=== PATIENT | female | born 1965 | race Two or more races ===

== ENCOUNTER 2017-08-24 13:26 | Inpatient (IN) | payer OTHER ==
--- NOTE | 2017-08-24 13:52 | PDOC ---
Attending Attestation - Resident Resident Name: Palmer Newell - ED Attending Attestation I have performed the following: I have examined & evaluated the patient, The case was reviewed & discussed with the resident, I agree w/resident's findings & plan, Exceptions are as noted - HPI HPI: 08/24/17 13:51 NVD and ABDOMINAL PAIN - Physicial Exam PE: 08/24/17 13:51 VSS, NON-TENDER ABDOMEN - Medical Decision Making 08/24/17 13:[address] Newell Assessment and Plan
--- NOTE | 2017-08-24 14:06 | PDOC ---
History of Present Illness - History of Present Illness Initial Comments: 08/24/17 14:40 The patient is a 52 year old female, with a significant past medical history of right kidney transplant, htn, diabetes, who presents to the emergency department with nausea, vomiting, and diarrhea for 2 days. The patient states her vomit is nonbilious/nonbloody. She reports her diarrhea as watery, but denies blood. She reports her son has similar symptoms and was treated for food poisoning. The patient's mother and her son both reportedly ate "bad tasting" potato salad and macaroni. The patient also report experiencing alternating hot and cold, as well as, feeling "sweaty". She denies chest pain, shortness of breath, headache and dizziness. She denies constipation. She denies dysuria, frequency, urgency and hematuria. Surgical Hx: none reported <Argelia Paris - Last Filed: 08/24/17 18:47> <Ayaz Alberto - Last Filed: 08/24/17 19:24> - General Chief Complaint: Pain Stated Complaint: ABD PAIN Time Seen by Provider: 08/24/17 13:43 Past History <Argelia Paris - Last Filed: 08/24/17 18:47> - Past Medical History Asthma: Yes Cardiac Disorders: Yes (Murmur) COPD: No Dialysis: (In the past, had Kidney transp.Rt arm Fistula) Disorders: Yes HTN: Yes Thyroid Disease: No - Suicide/Smoking/Psychosocial Hx Smoking Status: No Smoking History: Never smoked Have you smoked in the past 12 months: No Number of Cigarettes Smoked Daily: 0 Hx Alcohol Use: No Drug/Substance Use Hx: No Substance Use Type: None Hx Substance Use Treatment: No <Ayaz Alberto - Last Filed: 08/24/17 19:24> - Past Medical History Allergies/Adverse Reactions: Allergies Allergy/AdvReac Type Severity Reaction Status Date / Time shellfish derived Allergy Intermediate Swelling Verified 12/25/15 07:55 atorvastatin calcium Allergy Verified 12/25/15 07:55 [From Lipitor] ceftriaxone sodium Allergy Verified 08/24/17 13:32 [From Rocephin] ciprofloxacin [From Cipro] Allergy Verified 08/24/17 13:32 ciprofloxacin HCl Allergy Verified 08/24/17 13:32 [From Cipro] honey Allergy Verified 08/24/17 13:32 levofloxacin [From Levaquin] Allergy Verified 08/24/17 13:32 chas Allergy Verified 08/24/17 13:32 naproxen sodium [From Aleve] Allergy Verified 08/24/17 13:32 pineapple Allergy Verified 08/24/17 13:32 povidone-iodine Allergy Verified 08/24/17 13:32 [From Betadine] soap [From Betadine] Allergy Verified 08/24/17 13:32 strawberry Allergy Verified 12/25/15 07:57 vancomycin Allergy Verified 12/25/15 07:55 russafin Allergy Uncoded 12/25/15 07:56 Home Medications: Ambulatory Orders Clonidine HCl [Catapres -] 0.3 mg PO HS 05/14/13 Furosemide [Lasix -] 40 mg PO DAILY 05/14/13 Labetalol HCl [Normodyne -] 300 mg PO TID 05/14/13 Mycophenolate Mofetil [Cellcept] 500 mg PO DAILY 05/14/13 Prednisone [Deltasone -] 5 mg PO DAILY 05/14/13 Tacrolimus [Prograf] 3 mg PO DAILY 05/14/13 Clonidine HCl 0.1 mg PO TID 12/25/15 Glipizide [Glipizide ER] 5 mg PO DAILY 12/25/15 Review of Systems - Review of Systems Able to Perform ROS?: Yes Comments:: 08/24/17 15:10 GENERAL/CONSTITUTIONAL: (+) chills and diaphoresis. No fever. No weakness. HEAD, EYES, EARS, NOSE AND THROAT: No change in vision. No ear pain or discharge. No sore throat. CARDIOVASCULAR: No chest pain or shortness of breath. RESPIRATORY: No cough, wheezing, or hemoptysis. GASTROINTESTINAL: (+) nausea, vomiting, diarrhea. No constipation. GENITOURINARY: No dysuria, frequency, or change in urination. MUSCULOSKELETAL: No joint or muscle swelling or pain. No neck or back pain. SKIN: No rash NEUROLOGIC: No headache, vertigo, loss of consciousness, or change in strength/ sensation. ENDOCRINE: No increased thirst. No abnormal weight change. HEMATOLOGIC/LYMPHATIC: No anemia, easy bleeding, or history of blood clots. ALLERGIC/IMMUNOLOGIC: No hives or skin allergy. <Argelia Paris - Last Filed: 08/24/17 18:47> *Physical Exam - Vital Signs Last Vital Signs Temp Pulse Resp BP Pulse Ox 98 F 90 18 120/78 99 08/24/17 13:28 08/24/17 13:28 08/24/17 13:28 08/24/17 13:28 08/24/17 13:28 - Physical Exam Comments: 08/24/17 15:10 GENERAL: Awake, alert, and fully oriented, in no acute distress HEAD: No signs of trauma EYES: PERRLA, EOMI, sclera anicteric, conjunctiva clear ENT: Auricles normal inspection, hearing grossly normal, nares patent, oropharynx clear without exudates. Moist mucosa NECK: Normal ROM, supple, no lymphadenopathy, JVD, or masses LUNGS: Breath sounds equal, clear to auscultation bilaterally. No wheezes, and no crackles HEART: Regular rate and rhythm, normal S1 and S2, no murmurs, rubs or gallops ABDOMEN: Soft, nontender, normoactive bowel sounds. No guarding, no rebound. No masses EXTREMITIES: Normal range of motion, no edema. No clubbing or cyanosis. No cords, erythema, or tenderness NEUROLOGICAL: Cranial nerves II through XII grossly intact. Normal speech, normal gait SKIN: Warm, Dry, normal turgor, no rashes or lesions noted. <Argelia Paris - Last Filed: 08/24/17 18:47> - Vital Signs Last Vital Signs Temp Pulse Resp BP Pulse Ox 98 F 90 18 120/78 99 08/24/17 13:28 08/24/17 13:28 08/24/17 13:28 08/24/17 13:28 08/24/17 13:28 <Ayaz Alberto - Last Filed: 08/24/17 19:24> ED Treatment Course - LABORATORY CBC & Chemistry Diagram: 08/24/17 14:35 08/24/17 14:35 - Medications Given in the ED: ED Medications Discontinued Medications Generic Name Dose Route Start Last Admin Trade Name Khanhq PRN Reason Stop Dose Admin Ondansetron HCl 8 mg 08/24/17 14:24 08/24/17 14:35 Zofran Injection IVPB 08/24/17 14:25 8 mg ONCE ONE Administration <Argelia Paris - Last Filed: 08/24/17 18:47> - LABORATORY CBC & Chemistry Diagram: 08/24/17 14:35 08/24/17 14:35 <Ayaz Alberto - Last Filed: 08/24/17 19:24> Medical Decision Making - Medical Decision Making 08/24/17 18:00 Dr. Sharp was paged at the office requesting a call back for doctor to doctor consult. Dr. Henry ([phone]) was called at 18:14 and the patient's case was discussed. Dr. Henry confirmed the patient's kidney function baseline to be between 2.2. He agrees with admission of the patient. 08/24/17 18:[address] Sharp at this time for admission of this patient. 08/24/17 18:44 Dr. Sharp was called via phone answering service at this time requesting a call back for doctor to doctor consult regarding admission of this patient. I was informed [facility] is covering admission for Dr. Sharp at this time. 08/24/17 18:47 [facility] were microblogged at this time regarding observation admission for this patient. <Argelia Paris - Last Filed: 08/24/17 18:47> *DC/Admit/Observation/Transfer - Attestations Scribe Attestion: 08/24/17 15:10 Documentation prepared by Argelia Paris, acting as medical biller coder for Ayaz Alberto DO <Argelia Paris - Last Filed: 08/24/17 18:47> - Discharge Dispostion Admit: Yes - Attestations Physician Attestion: 08/24/17 14:06 I, Dr. Ayaz Alberto, attest that this document has been prepared under my direction and personally reviewed by me in its entirety. I further attest, that it accurately reflects all work, treatment, procedures and medical decision -making performed by me. <Ayaz Alberto - Last Filed: 08/24/17 19:24> Diagnosis at time of Disposition: Acute kidney injury, Renal transplant recipient - Discharge Dispostion Condition at time of disposition: Improved - Referrals Referrals: Ema Sharp MD [Primary Care Provider] - - Patient Instructions - Post Discharge Activity
[2017-08-24] MEDS ORDERED: ONDANSETRON 4 MG/2 ML VIAL IVPB ONE (14:24)
[2017-08-24] MEDS ORDERED: SODIUM CHLORIDE 1,000 ML IV STA ×2 (14:24→14:35)
[2017-08-24] MEDS ORDERED: ONDANSETRON 4 MG/2 ML VIAL ONE (14:29)
[2017-08-24 14:44] LABS: BASO % 0.5 % (0-2.0); EOS % 2.5 % (0-4.5); HEMATOCRIT 37.3 % (32.4-45.2); HEMOGLOBIN 11.9 GM/dL (10.7-15.3); LYMPH % 15.3 % (8-40); MCH 25.2 pg (25.7-33.7); MCHC 31.9 g/dl (32.0-36.0); MEAN PLT VOLUME 8.2 fl (7.5-11.1); MONO % 5.5 % (3.8-10.2); NEUT % 76.2 % (42.8-82.8); PLATELET COUNT 203 K/MM3 (134-434); RBC 4.72 M/mm3 (3.60-5.2); RDW 13.9 % (11.6-15.6); WHITE BLOOD COUNT 6.5 K/mm3 (4.0-10.0)
[2017-08-24 15:08] LABS: ALBUMIN 3.2 g/dl (3.4-5.0); ALK PHOS 129 U/L (45-117); ANION GAP 13 (8-16); BILIRUBIN,TOTAL 0.7 mg/dL (0.2-1.0); BLOOD UREA NITROGEN 90 mg/dL (7-18); CALCIUM 8.7 mg/dL (8.5-10.1); CHLORIDE 101 mmol/L (98-107); CO2 23 mmol/L (21-32); CREATININE 4.9 mg/dL (0.55-1.02); GLUCOSE,RANDOM 211 mg/dL (74-106); POTASSIUM 4.3 mmol/L (3.5-5.1); SGOT/AST 28 U/L (15-37); SGPT/ALT 29 U/L (12-78); SODIUM 137 mmol/L (136-145); TOT PROT 6.8 g/dl (6.4-8.2)
[2017-08-24 15:13] LABS: LIPASE 260 U/L (73-393)
--- NOTE | 2017-08-24 19:22 | HP ---
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 Who presents to the ED with, nausea, vomiting, diarrhea, epigastric pain since 08/22. Patient reports the pain began overnight after eating at a relatives house for [employer]. The patient reports the pain as stabbing, intermittent. She reports having chills, generalized bodyaches, hot/cold flashes, cough, lightheaded and dizziness. She reports that her son, mother and infant grandaughter had vomiting and diarrhea too. Patient denies SOB, CP, constipation, melena, hematochezia, hematuria, dysuria History Source: Patient Limitations to Obtaining History: No Limitations - Past Medical History Cardiovascular: Yes: HTN, Hyperlipdemia Pulmonary: Yes: Asthma Renal/: Yes: Renal Failure (as in HPI) Reproductive: Yes: Postmenopausal ...: No (last menses 6 yrs ago) - Past Surgical History Past Surgical History: Yes: AV Fistula/Graft (s/p AVF creation for HD RUE (non- functional now)), Hysterectomy (partial), Kidney Transplant (Right ([facility], 1999)) - Smoking History Smoking history: Never smoked Have you smoked in the past 12 months: No Aproximately how many cigarettes per day: 0 - Alcohol/Substance Use Hx Alcohol Use: No History of Substance Use: reports: None - Social History Usual Living Arrangement: Yes: With Spouse ADL: Independent Occupation: Employed History of Recent Travel: No Home Medications - Allergies Allergies/Adverse Reactions: Allergies Allergy/AdvReac Type Severity Reaction Status Date / Time shellfish derived Allergy Intermediate Swelling Verified 12/25/15 07:55 atorvastatin calcium Allergy Verified 12/25/15 07:55 [From Lipitor] ceftriaxone sodium Allergy Verified 08/24/17 13:32 [From Rocephin] ciprofloxacin [From Cipro] Allergy Verified 08/24/17 13:32 ciprofloxacin HCl Allergy Verified 08/24/17 13:32 [From Cipro] honey Allergy Verified 08/24/17 13:32 levofloxacin [From Levaquin] Allergy Verified 08/24/17 13:32 chas Allergy Verified 08/24/17 13:32 naproxen sodium [From Aleve] Allergy Verified 08/24/17 13:32 pineapple Allergy Verified 08/24/17 13:32 povidone-iodine Allergy Verified 08/24/17 13:32 [From Betadine] soap [From Betadine] Allergy Verified 08/24/17 13:32 strawberry Allergy Verified 12/25/15 07:57 vancomycin Allergy Verified 12/25/15 07:55 russafin Allergy Uncoded 12/25/15 07:56 - Home Medications Home Medications: Ambulatory Orders Clonidine HCl [Catapres -] 0.3 mg PO HS 05/14/13 Furosemide [Lasix -] 40 mg PO DAILY 05/14/13 Labetalol HCl [Normodyne -] 300 mg PO TID 05/14/13 Mycophenolate Mofetil [Cellcept] 500 mg PO DAILY 05/14/13 Prednisone [Deltasone -] 5 mg PO DAILY 05/14/13 Tacrolimus [Prograf] 3 mg PO DAILY 05/14/13 Clonidine HCl 0.1 mg PO TID 12/25/15 Glipizide [Glipizide ER] 5 mg PO DAILY 12/25/15 Family Disease History - Family Disease History Family Disease History: Diabetes: Grandparent (Asthma), Father (HTN, Alcoholic) , Mother (Bordeline DM, HTN), Heart Disease: Grandparent, Father, Mother, CA: Grandparent, Other: Grandparent, Father Review of Systems - Review of Systems Constitutional: reports: Chills, Fever (subjective), Loss of Appetite, Malaise, Weakness Eyes: reports: No Symptoms HENT: reports: No Symptoms Neck: reports: No Symptoms Cardiovascular: reports: No Symptoms Respiratory: reports: No Symptoms Gastrointestinal: reports: Abdominal Pain, Diarrhea, Vomiting Genitourinary: reports: No Symptoms Breasts: reports: No Symptoms Reported Musculoskeletal: reports: Back Pain Integumentary: reports: No Symptoms Neurological: reports: Dizziness, Numbness, Parasthesia (b/l feet, L- fingers #4 , #5) Endocrine: reports: No Symptoms Hematology/Lymphatic: reports: No Symptoms Psychiatric: reports: No Symptoms Physical Examination Vital Signs: Vital Signs Temperature 98 F 08/24/17 13:28 Pulse Rate 90 08/24/17 13:28 Respiratory Rate 18 08/24/17 13:28 Blood Pressure 120/78 08/24/17 13:28 O2 Sat by Pulse Oximetry (%) 99 08/24/17 13:28 Constitutional: Yes: Well Nourished, No Distress, Calm Eyes: Yes: WNL, Conjunctiva Clear, EOM Intact, PERRL HENT: Yes: WNL, Atraumatic, Normocephalic Neck: Yes: WNL, Supple, Trachea Midline Cardiovascular: Yes: Regular Rate and Rhythm, Murmur (Grade 1), S1, S2 Respiratory: Yes: WNL, Regular, CTA Bilaterally Gastrointestinal: Yes: Soft, Hypoactive Bowel Sounds, Tenderness, Epigastrium ...Rectal Exam: Yes: Deferred Renal/: Yes: WNL Breast(s): Yes: WNL Musculoskeletal: Yes: WNL Extremities: Yes: WNL Edema: No Peripheral Pulses WNL: Yes Integumentary: Yes: WNL Neurological: Yes: WNL, Alert, Oriented, Cran Nerves II-XII Intact ...Motor Strength: WNL Psychiatric: Yes: WNL, Alert, Oriented Labs: CBC, BMP 08/24/17 14:35 08/24/17 14:35 Laboratory Results - last 24 hr 08/24/17 08/24/17 08/24/17 14:35 14:35 17:47 WBC 6.5 RBC 4.72 Hgb 11.9 Hct 37.3 MCV 79.0 L MCH 25.2 L MCHC 31.9 L RDW 13.9 Plt Count 203 D MPV 8.2 D Neutrophils % 76.2 Lymphocytes % 15.3 D Monocytes % 5.5 Eosinophils % 2.5 Basophils % 0.5 Sodium 137 Potassium 4.3 Chloride 101 Carbon Dioxide 23 Anion Gap 13 BUN 90 H D Creatinine 4.9 H D Creat Clearance w eGFR 9.30 Random Glucose 211 H D Calcium 8.7 Total Bilirubin 0.7 D AST 28 D ALT 29 Alkaline Phosphatase 129 H Total Protein 6.8 Albumin 3.2 L Lipase 260 Urine Color Yellow Urine Appearance Slcloudy Urine pH 5.0 Ur Specific Meno 1.014 Urine Protein Negative Urine Glucose (UA) Negative Urine Ketones Trace H Urine Blood Negative Urine Nitrite Negative Urine Bilirubin Negative Urine Urobilinogen Negative Ur Leukocyte Esterase Negative Intake & Output 08/22/17 08/23/17 08/24/17 08/25/17 23:59 23:59 23:59 23:59 Intake Total 2200 354 Output Total 100 Balance 2100 354 Weight 76.612 kg Imaging - Results Chest X-ray: Pending EKG: Pending Problem List - Problems (1) CKD (chronic kidney disease) Assessment/Plan: - ESRD 2/2 ?PIGN/ATN s/p strep Infection requiring HD - CR 4.9 (baseline 1.8-2.5) - Appreciate Nephrology Consult - Repeat BMP in am - Avoid Nephrotoxic Drugs Code(s): N18.9 - CHRONIC KIDNEY DISEASE, UNSPECIFIED (2) Vomiting and diarrhea Assessment/Plan: - Likely secondary to Gastritis - NS bolus x2, Zofran given in ED - Will continue gentle IVF secondary to CKD - Monitor BMP - Monitor vitals - NPO Code(s): R11.10 - VOMITING, UNSPECIFIED; R19.7 - DIARRHEA, UNSPECIFIED (3) Renal transplant recipient Assessment/Plan: - Continue Cellcept, Prograf - f/u with Transplant Specialist at [facility] as needed Code(s): Z94.0 - KIDNEY TRANSPLANT STATUS (4) HTN (hypertension) Assessment/Plan: - Controlled - Monitor BP - Continue Clonidine with parameters - Monitor renal function Code(s): I10 - ESSENTIAL (PRIMARY) HYPERTENSION (5) Diabetes mellitus Assessment/Plan: - BGM - ISS - Hold Glipizide secondary to Acute on Chronic renal insufficiency - HgBA1C in am Code(s): E11.9 - TYPE 2 DIABETES MELLITUS WITHOUT COMPLICATIONS (6) DVT prophylaxis Assessment/Plan: - OOB - SCDs - Heparin SQ Code(s): LHW0205 - Assessment/Plan This is a 89 y/o woman with a PMHx of: R- Kidney Transplant ([facility], 1999) , HTN, DM, CKD, ESRD. Admitted for Acute on Chronic Renal Failure, Gastritis Plan: FEN - NS@42cc/hr - Replete lytes prn - NPO Code Status: Full Code Dispo: Requires Inpatient Care Visit type - Emergency Visit Emergency Visit: Yes ED Registration Date: 08/24/17 Care time: The patient presented to the Emergency Department on the above date and was hospitalized for further evaluation of their emergent condition. - New Patient This patient is new to me today: Yes Date on this admission: 08/24/17 - Critical Care Critical Care patient: No
[2017-08-24 19:51] LABS: URINE APPEARANCE SLCLOUDY; URINE BILIRUBIN NEGATIVE (NEGATIVE); URINE BLOOD NEGATIVE (NEGATIVE); URINE COLOR YELLOW; URINE GLUCOSE (UA) NEGATIVE (NEGATIVE); URINE KETONE TRACE (NEGATIVE); URINE LEUK ESTERASE NEGATIVE (NEGATIVE); URINE NITRITE NEGATIVE (NEGATIVE); URINE PROTEIN NEGATIVE (NEGATIVE); URINE UROBILINOGEN NEGATIVE mg/dL (0.2-1.0)
[2017-08-24] MEDS ORDERED: ONDANSETRON 4 MG/2 ML VIAL IVPUSH PRN (21:06)
[2017-08-24] MEDS ORDERED: SODIUM CHLORIDE 1,000 ML IV SCH (21:15)
[2017-08-24] MEDS ORDERED: CALCIUM CARBONATE 650 MG TABLET PO ONE (23:15)
[2017-08-24] MEDS: cloNIDine HCL 0.1 MG TABLET PO SCH (23:16)
[2017-08-24] MEDS: LABETALOL HCL 100 MG TABLET (FP) PO SCH (23:17)
[2017-08-24] MEDS: HEPARIN NA (PORCINE) 5,000 UNITS/ML 1ML VIAL SQ SCH (23:25)
[2017-08-25 02:41] VITALS: BMI 26.4
[2017-08-25] MEDS: LABETALOL HCL 100 MG TABLET (FP) PO SCH ×3 (07:02→21:51)
[2017-08-25] MEDS: cloNIDine HCL 0.1 MG TABLET PO SCH ×5 (07:03→21:50)
[2017-08-25] MEDS: INSULIN SLIDING SCALE (NOVOLOG) 1 VIAL SQ SCH ×4 (07:54→21:54)
[2017-08-25 08:50] LABS: BASO % 0.5 % (0-2.0); EOS % 5.1 % (0-4.5); HEMATOCRIT 32.9 % (32.4-45.2); HEMOGLOBIN 10.5 GM/dL (10.7-15.3); LYMPH % 27.9 % (8-40); MCH 25.1 pg (25.7-33.7); MCHC 32.1 g/dl (32.0-36.0); MEAN CELL VOLUME 78.3 fl (80-96); MEAN PLT VOLUME 7.9 fl (7.5-11.1); MONO % 7.5 % (3.8-10.2); PLATELET COUNT 208 K/MM3 (134-434); RDW 13.9 % (11.6-15.6); WHITE BLOOD COUNT 3.9 K/mm3 (4.0-10.0)
[2017-08-25 09:13] LABS: ANION GAP 10 (8-16); BLOOD UREA NITROGEN 79 mg/dL (7-18); CALCIUM 7.8 mg/dL (8.5-10.1); CHLORIDE 107 mmol/L (98-107); CO2 21 mmol/L (21-32); CREATININE 3.7 mg/dL (0.55-1.02); GLUCOSE,RANDOM 198 mg/dL (74-106); POTASSIUM 3.9 mmol/L (3.5-5.1); SODIUM 138 mmol/L (136-145)
--- NOTE | 2017-08-25 09:22 | EKG ---
Test Reason : Blood Pressure : / mmHG Vent. Rate : 094 BPM Atrial Rate : 094 BPM P-R Int : 184 ms QRS Dur : 096 ms QT Int : 404 ms P-R-T Axes : 057 -08 118 degrees QTc Int : 505 ms NORMAL SINUS RHYTHM LEFT VENTRICULAR HYPERTROPHY WITH REPOLARIZATION ABNORMALITY PROLONGED QT NONSPECIFIC T WAVE ABNORMALITY WHEN COMPARED WITH ECG OF 25-DEC-2015 08:45, NO SIGNIFICANT CHANGE WAS FOUND Confirmed by NUVIA MATA MD ([id number]) on 08/25/2017 9:22:25 AM Referred By: Confirmed By:NUVIA MATA MD
[2017-08-25] MEDS ORDERED: PT OWN MED DRAWER 7, Y5N ONE (10:29)
[2017-08-25] MEDS: predniSONE 5 MG TABLET (UD) PO SCH (10:30)
[2017-08-25] MEDS: MYCOPHENOLATE MOFETIL 500 MG TABLET PO SCH (10:30)
[2017-08-25] MEDS: HEPARIN NA (PORCINE) 5,000 UNITS/ML 1ML VIAL SQ SCH ×2 (10:31→21:50)
[2017-08-25] MEDS: TACROLIMUS ANHYDROUS 1 MG CAPSULE PO SCH (10:41)
--- NOTE | 2017-08-25 10:57 | CON.NEP ---
Consult Consult Specialty:: Nephrology Referred by:: MEHUL Solo Reason for Consultation:: SURI/Renal Transplant - History of Present Illness Chief Complaint: N/V History of Present Illness: This is a 52 year old woman with PMhx of ESRD s/p DDRT 1999 with mild CKD (Cr 1.8-2.3 at baseline as per pt), Hypertension who presented with complaints of N/ V x 48 hours and found to have SURI on CKD. Pt does not follow with a public information coordinator on a regular basis. Pt is on Tacrolimus/Cellcept/Prednisone. Pt w/ o fever, chills, dysuria, flank pain. + family members with similiar symptoms. No chest pain, sob. No hx of CMV or colitis in the past. - History Source History Provided By: Patient Limitations to Obtaining History: No Limitations - Past Medical History Cardio/Vascular: Yes: HTN, Hyperlipdemia Pulmonary: Yes: Asthma Renal/: Yes: Renal Failure (as in HPI), Renal Inusuff ...: No (last menses 6 yrs ago) - Past Surgical History Past Surgical History: Yes: AV Fistula/Graft (s/p AVF creation for HD RUE (non- functional now)), Hysterectomy (partial), Kidney Transplant (Right ([facility], 1999)) - Alcohol/Substance Use Hx Alcohol Use: No History of Substance Use: reports: None - Smoking History Smoking history: Never smoked Have you smoked in the past 12 months: No Aproximately how many cigarettes per day: 0 If you are a former smoker, when did you quit?: 22 years ago - Social History ADL: Independent Occupation: Employed History of Recent Travel: No Home Medications - Allergies Allergies/Adverse Reactions: Allergies Allergy/AdvReac Type Severity Reaction Status Date / Time shellfish derived Allergy Intermediate Swelling Verified 12/25/15 07:55 atorvastatin calcium Allergy Verified 12/25/15 07:55 [From Lipitor] ceftriaxone sodium Allergy Verified 08/24/17 13:32 [From Rocephin] ciprofloxacin [From Cipro] Allergy Verified 08/24/17 13:32 ciprofloxacin HCl Allergy Verified 08/24/17 13:32 [From Cipro] honey Allergy Verified 08/24/17 13:32 levofloxacin [From Levaquin] Allergy Verified 08/24/17 13:32 chas Allergy Verified 08/24/17 13:32 naproxen sodium [From Aleve] Allergy Verified 08/24/17 13:32 pineapple Allergy Verified 08/24/17 13:32 povidone-iodine Allergy Verified 08/24/17 13:32 [From Betadine] soap [From Betadine] Allergy Verified 08/24/17 13:32 strawberry Allergy Verified 12/25/15 07:57 vancomycin Allergy Verified 12/25/15 07:55 russafin Allergy Uncoded 12/25/15 07:56 - Home Medications Home Medications: Ambulatory Orders Clonidine HCl [Catapres -] 0.3 mg PO HS 05/14/13 Furosemide [Lasix -] 40 mg PO DAILY 05/14/13 Labetalol HCl [Normodyne -] 300 mg PO TID 05/14/13 Mycophenolate Mofetil [Cellcept] 500 mg PO DAILY 05/14/13 Prednisone [Deltasone -] 5 mg PO DAILY 05/14/13 Tacrolimus [Prograf] 3 mg PO DAILY 05/14/13 Clonidine HCl 0.1 mg PO TID 12/25/15 Glipizide [Glipizide ER] 5 mg PO DAILY 12/25/15 Family Disease History - Family Disease History Family Disease History: Diabetes: Grandparent (Asthma), Father (HTN, Alcoholic) , Mother (Bordeline DM, HTN), Heart Disease: Grandparent, Father, Mother, CA: Grandparent, Other: Grandparent, Father Review of Systems - Review of Systems Constitutional: reports: Loss of Appetite, Weakness Eyes: reports: No Symptoms HENT: reports: No Symptoms Neck: reports: No Symptoms Cardiovascular: denies: Chest Pain, Edema, Palpitations, Shortness of Breath Respiratory: denies: Cough, Orthopnea, SOB, SOB on Exertion Gastrointestinal: reports: Abdominal Pain, Nausea, Vomiting. denies: Melena Genitourinary: denies: Burning, Discharge, Dysuria, Flank Pain, Frequency Nephrology Consult - Height Height: 5 ft 7 in - Weight Weight: 76.612 kg - BMI Body Mass Index (BMI): 26.4 - Lab Results CBC,BMP: CBC, BMP 08/25/17 08:11 08/25/17 08:11 Anion Gap: Anion Gap Anion Gap 10 (8-16) 08/25/17 08:11 - Imaging Chest X-ray: Report Reviewed - Physical Examination Vital Signs: Vital Signs Temperature 97.9 F 08/25/17 10:25 Pulse Rate 79 08/25/17 10:25 Respiratory Rate 20 08/25/17 10:25 Blood Pressure 155/79 08/25/17 10:25 O2 Sat by Pulse Oximetry (%) 100 08/24/17 22:00 Constitutional: Yes: No Distress, Calm Eyes: Yes: Conjunctiva Clear HENT: Yes: Atraumatic Neck: Yes: Supple Cardiovascular: Yes: Regular Rate and Rhythm Respiratory: Yes: Regular, CTA Bilaterally Gastrointestinal: Yes: Normal Bowel Sounds, Soft, Other (no tenderness over graft site). No: Tenderness Renal/: No: Bladder Distention, CVA Tenderness - Left, CVA Tenderness - Right , Schulte Present Neurological: Yes: Alert, Oriented Assessment/Plan 52 year old woman with PMhx of ESRD s/p DDRT 1999 with mild CKD (Cr 1.8-2.3 at baseline as per pt), Hypertension who presented with complaints of N/V x 48 hours and found to have SURI on CKD. #SURI on CKD in setting of renal Transplant Likely etiology of injury is hypovolemia in setting of N/V renal function already improving check Urine for FeNa, UPCR no acute indication for US of transplant kidney as renal function getting better continue Tacrolimus, Prednisone and Cellcept avoid NSAIDs, RUTH ANN/ARB at this time Trend BUN/Cr daily if renal function improving toward baseline and pt able to tolerate oral diet can consider discharge tomorrow with outpatient follow up #N/V ? viral vs. bacterial gastroenteritis GI consult placed on IVF Anti-emetics PRN diet as tolerated LFT' and lipase are WNL #Hypertension Continue Clonidine and Labetalol no RUTH ANN/ARB at this time goal BP < 140/90 expect BP to be higher then presentation with improvement in volume status Thank you Will follow Rodrick Harmon DO
--- NOTE | 2017-08-25 11:06 | PN ---
Progress Note, Physician Chief Complaint: AWAKE ALERT FEELING BETTER - Current Medication List Current Medications: Active Medications Clonidine (Catapres -) 0.1 mg PO 0600,1200,1800 [facility] Last Admin: 08/25/17 07:03 Dose: 0.1 mg Clonidine (Catapres -) 0.3 mg PO HS [facility] Last Admin: 08/24/17 23:16 Dose: 0.3 mg Heparin Sodium (Porcine) (Heparin -) 5,000 unit SQ BID [facility] Last Admin: 08/25/17 10:31 Dose: Not Given Sodium Chloride (Normal Saline -) 1,000 mls @ 100 mls/hr IV ASDIR [facility] Insulin Aspart (Novolog Vial Sliding Scale -) 1 vial SQ ACHS [facility] PRN Reason: Protocol Last Admin: 08/25/17 07:54 Dose: Not Given Labetalol HCl (Normodyne -) 300 mg PO TID [facility] Last Admin: 08/25/17 07:02 Dose: 300 mg Mycophenolate Mofetil (Cellcept -) 500 mg PO DAILY [facility] Last Admin: 08/25/17 10:30 Dose: 500 mg Ondansetron HCl (Zofran Injection) 4 mg IVPUSH Q6H PRN PRN Reason: NAUSEA AND/OR VOMITING Prednisone (Deltasone -) 5 mg PO DAILY [facility] Last Admin: 08/25/17 10:30 Dose: 5 mg Tacrolimus (Prograf) 3 mg PO DAILY [facility] Last Admin: 08/25/17 10:41 Dose: 3 mg - Objective Vital Signs: Vital Signs Temperature 97.9 F 08/25/17 10:25 Pulse Rate 79 08/25/17 10:25 Respiratory Rate 20 08/25/17 10:25 Blood Pressure 155/79 08/25/17 10:25 O2 Sat by Pulse Oximetry (%) 100 08/24/17 22:00 Constitutional: Yes: Mild Distress Eyes: Yes: WNL HENT: Yes: WNL, Tonsillar Exudate Neck: Yes: WNL Cardiovascular: Yes: WNL Respiratory: Yes: WNL Gastrointestinal: Yes: WNL Genitourinary: Yes: WNL Musculoskeletal: Yes: WNL Extremities: Yes: WNL Edema: No Peripheral Pulses WNL: Yes Integumentary: Yes: WNL Wound/Incision: Yes: Clean/Dry Neurological: Yes: WNL ...Motor Strength: WNL Psychiatric: Yes: WNL Labs: CBC, BMP 08/25/17 08:11 08/25/17 08:11 Problem List - Problems (1) Acute kidney injury Code(s): N17.9 - ACUTE KIDNEY FAILURE, UNSPECIFIED (2) CKD (chronic kidney disease) Code(s): N18.9 - CHRONIC KIDNEY DISEASE, UNSPECIFIED Qualifiers: Chronic kidney disease stage: unspecified stage Qualified Code(s): N18.9 - Chronic kidney disease, unspecified (3) DVT prophylaxis Code(s): [id number] - (4) Diabetes mellitus Code(s): E11.9 - TYPE 2 DIABETES MELLITUS WITHOUT COMPLICATIONS Qualifiers: Diabetes mellitus type: type 2 Chronic kidney disease stage: unspecified stage (5) HTN (hypertension) Code(s): I10 - ESSENTIAL (PRIMARY) HYPERTENSION Qualifiers: Hypertension type: essential hypertension Qualified Code(s): I10 - Essential (primary) hypertension (6) Renal transplant recipient Code(s): Z94.0 - KIDNEY TRANSPLANT STATUS (7) Vomiting and diarrhea Code(s): R11.10 - VOMITING, UNSPECIFIED; R19.7 - DIARRHEA, UNSPECIFIED Assessment/Plan IVF BP CONTROL OOB TO CHAIR NEPHROLOGY F/U ZOFRJOHNATHON PRN ADVANCE DIET SLOWLY TOLERATED
--- NOTE | 2017-08-25 11:25 | CON.GI ---
Consult Consult Specialty:: GI - History of Present Illness History of Present Illness: Chart reviewed. On initial encounter: This is a 52 y/o woman with a past medical history of R- kidney Transplant ([facility], 1999), ESRD-HD (secondary to ?PIGN/ATN), HTN, DM. Acute onset of nausea, vomiting, diarrhea after a family gathering. Multiple other family membered had the same symptoms including an infant who was not exposed to table food. No prior, recuring episodes of aga same. No melena, hematochezia, dysphagia, dyspepsia, odynophagaia, weight loss, skiun, joint, eye symptoms, or chronic GERD. No family history of IBD, chronic colitis At the time of this encounter offers no complaints. Feels much better. Pain, nausea, vomiting have resolved. - History Source History Provided By: Patient - Past Medical History Cardio/Vascular: Yes: HTN, Hyperlipdemia Pulmonary: Yes: Asthma Renal/: Yes: Renal Failure (as in HPI), Renal Inusuff ...: No (last menses 6 yrs ago) - Past Surgical History Past Surgical History: Yes: AV Fistula/Graft (s/p AVF creation for HD RUE (non- functional now)), Hysterectomy (partial), Kidney Transplant (Right ([facility], 1999)) - Alcohol/Substance Use Hx Alcohol Use: No History of Substance Use: reports: None - Smoking History Smoking history: Never smoked Have you smoked in the past 12 months: No Aproximately how many cigarettes per day: 0 If you are a former smoker, when did you quit?: 22 years ago - Social History ADL: Independent Occupation: Employed History of Recent Travel: No Home Medications - Allergies Allergies/Adverse Reactions: Allergies Allergy/AdvReac Type Severity Reaction Status Date / Time shellfish derived Allergy Intermediate Swelling Verified 12/25/15 07:55 atorvastatin calcium Allergy Verified 12/25/15 07:55 [From Lipitor] ceftriaxone sodium Allergy Verified 08/24/17 13:32 [From Rocephin] ciprofloxacin [From Cipro] Allergy Verified 08/24/17 13:32 ciprofloxacin HCl Allergy Verified 08/24/17 13:32 [From Cipro] honey Allergy Verified 08/24/17 13:32 levofloxacin [From Levaquin] Allergy Verified 08/24/17 13:32 chas Allergy Verified 08/24/17 13:32 naproxen sodium [From Aleve] Allergy Verified 08/24/17 13:32 pineapple Allergy Verified 08/24/17 13:32 povidone-iodine Allergy Verified 08/24/17 13:32 [From Betadine] soap [From Betadine] Allergy Verified 08/24/17 13:32 strawberry Allergy Verified 12/25/15 07:57 vancomycin Allergy Verified 12/25/15 07:55 russafin Allergy Uncoded 12/25/15 07:56 - Home Medications Home Medications: Ambulatory Orders Clonidine HCl [Catapres -] 0.3 mg PO HS 05/14/13 Furosemide [Lasix -] 40 mg PO DAILY 05/14/13 Labetalol HCl [Normodyne -] 300 mg PO TID 05/14/13 Mycophenolate Mofetil [Cellcept] 500 mg PO DAILY 05/14/13 Prednisone [Deltasone -] 5 mg PO DAILY 05/14/13 Tacrolimus [Prograf] 3 mg PO DAILY 05/14/13 Clonidine HCl 0.1 mg PO TID 12/25/15 Glipizide [Glipizide ER] 5 mg PO DAILY 12/25/15 Family Disease History - Family Disease History Family History: Unremarkable (non-contributory) Family Disease History: Diabetes: Grandparent (Asthma), Father (HTN, Alcoholic) , Mother (Bordeline DM, HTN), Heart Disease: Grandparent, Father, Mother, CA: Grandparent, Other: Grandparent, Father Review of Systems Findings/Remarks: please refer to H&P and HPI Physical Exam-GI Vital Signs: Vital Signs Temperature 97.9 F 08/25/17 10:25 Pulse Rate 79 08/25/17 10:25 Respiratory Rate 20 08/25/17 10:25 Blood Pressure 155/79 08/25/17 10:25 O2 Sat by Pulse Oximetry (%) 100 08/24/17 22:00 Constitutional: Yes: Well Nourished, No Distress, Calm Eyes: Yes: Conjunctiva Clear HENT: Yes: Atraumatic Neck: Yes: Supple Cardiovascular: Yes: Regular Rate and Rhythm Respiratory: Yes: Regular Gastrointestinal Inspection: No: Ascites, Distention ...Auscultate: Yes: Normoactive Bowel Sounds ...Palpate: Yes: Soft. No: Firm/Rigid, Guarding, Mass, Tenderness, Tenderness, Epigastium, Tenderness, Rebound Neurological: Yes: Alert, Oriented Labs: CBC, BMP 08/25/17 08:11 08/25/17 08:11 Abnormal Lab Results 08/24/17 08/24/17 08/24/17 14:35 14:35 17:47 WBC Hgb MCV 79.0 L MCH 25.2 L MCHC 31.9 L Eosinophils % BUN 90 H D Creatinine 4.9 H D Random Glucose 211 H D Hemoglobin A1c % Calcium Alkaline Phosphatase 129 H Albumin 3.2 L Urine Ketones Trace H 08/25/17 08/25/17 08/25/17 08:11 08:11 08:11 WBC 3.9 L D Hgb 10.5 L D MCV 78.3 L MCH 25.1 L MCHC Eosinophils % 5.1 H D BUN 79 H Creatinine 3.7 H D Random Glucose 198 H Hemoglobin A1c % 10.6 H Calcium 7.8 L Alkaline Phosphatase Albumin Urine Ketones Problem List - Problems (1) Viral gastroenteritis Code(s): A08.4 - VIRAL INTESTINAL INFECTION, UNSPECIFIED (2) Renal transplant recipient Code(s): Z94.0 - KIDNEY TRANSPLANT STATUS Assessment/Plan Acute viral gastroenteritis. Clinically well. BRAT diet and advance as tolerated Avoid dairy and high fat diet for 1-2 weeks
[2017-08-25] MEDS: SODIUM CHLORIDE 1,000 ML IV SCH (12:22)
[2017-08-26] MEDS: INSULIN SLIDING SCALE (NOVOLOG) 1 VIAL SQ SCH ×3 (06:09→20:13)
[2017-08-26] MEDS: LABETALOL HCL 100 MG TABLET (FP) PO SCH ×2 (06:23→13:50)
[2017-08-26] MEDS: cloNIDine HCL 0.1 MG TABLET PO SCH ×2 (06:23→13:51)
[2017-08-26 08:36] LABS: HEMATOCRIT 31.2 % (32.4-45.2); MCH 25.2 pg (25.7-33.7); MEAN CELL VOLUME 78.8 fl (80-96); MEAN PLT VOLUME 7.6 fl (7.5-11.1); PLATELET COUNT 196 K/MM3 (134-434); RBC 3.96 M/mm3 (3.60-5.2); RDW 13.9 % (11.6-15.6); WHITE BLOOD COUNT 4.6 K/mm3 (4.0-10.0)
[2017-08-26 08:55] LABS: ANION GAP 7 (8-16); BILIRUBIN,TOTAL 0.5 mg/dL (0.2-1.0); BLOOD UREA NITROGEN 54 mg/dL (7-18); CALCIUM 7.9 mg/dL (8.5-10.1); CHLORIDE 114 mmol/L (98-107); CO2 22 mmol/L (21-32); CREATININE 2.4 mg/dL (0.55-1.02); GLUCOSE,RANDOM 179 mg/dL (74-106); POTASSIUM 4.2 mmol/L (3.5-5.1); SGOT/AST 22 U/L (15-37); SGPT/ALT 26 U/L (12-78); SODIUM 143 mmol/L (136-145)
[2017-08-26 08:56] LABS: ALK PHOS 103 U/L (45-117)
[2017-08-26] MEDS ORDERED: PT OWN MED DRAWER 7, Y5N ONE (09:28)
[2017-08-26] MEDS: predniSONE 5 MG TABLET (UD) PO SCH (09:39)
[2017-08-26] MEDS: HEPARIN NA (PORCINE) 5,000 UNITS/ML 1ML VIAL SQ SCH (09:39)
[2017-08-26] MEDS: MYCOPHENOLATE MOFETIL 500 MG TABLET PO SCH (09:39)
[2017-08-26] MEDS: TACROLIMUS ANHYDROUS 1 MG CAPSULE PO SCH (09:41)
--- NOTE | 2017-08-26 11:10 | PN ---
Progress Note (short form) - Note Progress Note: Renal follow up for SURI/Renal Transplant Pt seen and examined at the bedside awake and alert no complaints tolerating bland diet no N/V good urine output Vital Signs Temperature 98.2 F 08/26/17 09:00 Pulse Rate 75 08/26/17 09:00 Respiratory Rate 18 08/26/17 09:00 Blood Pressure 153/89 08/26/17 09:00 O2 Sat by Pulse Oximetry (%) 99 08/26/17 09:00 Intake & Output 08/23/17 08/24/17 08/25/17 08/26/17 23:59 23:59 23:59 23:59 Intake Total 2200 2279 700 Output Total 100 900 200 Balance 2100 1379 500 Weight 76.612 kg 76.612 kg NAD awake and alert RRR CTA soft NT/ND No LE edema CBC, BMP 08/26/17 07:30 08/26/17 07:30 Current Medications Clonidine (Catapres -) 0.1 mg PO 0600,1200,1800 [facility] Last Admin: 08/26/17 06:23 Dose: 0.1 mg Clonidine (Catapres -) 0.3 mg PO HS [facility] Last Admin: 08/25/17 21:50 Dose: 0.3 mg Heparin Sodium (Porcine) (Heparin -) 5,000 unit SQ BID [facility] Last Admin: 08/26/17 09:39 Dose: Not Given Sodium Chloride (Normal Saline -) 1,000 mls @ 100 mls/hr IV ASDIR [facility] Last Admin: 08/25/17 12:22 Dose: 100 mls/hr Insulin Aspart (Novolog Vial Sliding Scale -) 1 vial SQ ACHS [facility] PRN Reason: Protocol Last Admin: 08/26/17 06:09 Dose: Not Given Labetalol HCl (Normodyne -) 300 mg PO TID [facility] Last Admin: 08/26/17 06:23 Dose: 300 mg Mycophenolate Mofetil (Cellcept -) 500 mg PO DAILY [facility] Last Admin: 08/26/17 09:39 Dose: 500 mg Ondansetron HCl (Zofran Injection) 4 mg IVPUSH Q6H PRN PRN Reason: NAUSEA AND/OR VOMITING Prednisone (Deltasone -) 5 mg PO DAILY [facility] Last Admin: 08/26/17 09:39 Dose: 5 mg Tacrolimus (Prograf) 3 mg PO DAILY [facility] Last Admin: 08/26/17 09:41 Dose: 3 mg 52 year old woman with PMhx of ESRD s/p DDRT 1999 with mild CKD (Cr 1.8-2.3 at baseline as per pt), Hypertension who presented with complaints of N/V x 48 hours and found to have SURI on CKD. #SURI on CKD in setting of renal Transplant Likely etiology of injury is hypovolemia in setting of N/V Renal function improved to near baseline off IVF continue Taco/Cellcelpt/Prednisone would be hesitant to d/c prednisone given pt has been on it for 17 + yaars to follow up in our office for monitoring of renal function #N/V improved #Hypertension Continue Clonidine and Labetalol no RUTH ANN/ARB at this time goal BP < 140/90 trend off IVF, should be improved can titrate meds as outpatient stable for discharge home with outpatient follow up Rodrick Harmon DO
[2017-08-26 15:20] VITALS: BP 162/91; PULSE 79; TEMP 97.9
--- NOTE | 2017-08-26 16:39 | PN ---
Progress Note, Physician Chief Complaint: N/V/SURI History of Present Illness: Awake alert feeling better wants to go home - Current Medication List Current Medications: Active Medications Clonidine (Catapres -) 0.1 mg PO 0600,1200,1800 [facility] Last Admin: 08/26/17 13:51 Dose: 0.1 mg Clonidine (Catapres -) 0.3 mg PO HS [facility] Last Admin: 08/25/17 21:50 Dose: 0.3 mg Heparin Sodium (Porcine) (Heparin -) 5,000 unit SQ BID [facility] Last Admin: 08/26/17 09:39 Dose: Not Given Sodium Chloride (Normal Saline -) 1,000 mls @ 100 mls/hr IV ASDIR [facility] Last Admin: 08/25/17 12:22 Dose: 100 mls/hr Insulin Aspart (Novolog Vial Sliding Scale -) 1 vial SQ ACHS [facility] PRN Reason: Protocol Last Admin: 08/26/17 12:38 Dose: Not Given Labetalol HCl (Normodyne -) 300 mg PO TID [facility] Last Admin: 08/26/17 13:50 Dose: 300 mg Mycophenolate Mofetil (Cellcept -) 500 mg PO DAILY [facility] Last Admin: 08/26/17 09:39 Dose: 500 mg Ondansetron HCl (Zofran Injection) 4 mg IVPUSH Q6H PRN PRN Reason: NAUSEA AND/OR VOMITING Prednisone (Deltasone -) 5 mg PO DAILY [facility] Last Admin: 08/26/17 09:39 Dose: 5 mg Tacrolimus (Prograf) 3 mg PO DAILY [facility] Last Admin: 08/26/17 09:41 Dose: 3 mg - Objective Vital Signs: Vital Signs Temperature 97.9 F 08/26/17 15:17 Pulse Rate 79 08/26/17 15:17 Respiratory Rate 20 08/26/17 15:17 Blood Pressure 162/91 08/26/17 15:17 O2 Sat by Pulse Oximetry (%) 99 08/26/17 09:00 Constitutional: Yes: Well Nourished, No Distress, Calm Labs: CBC, BMP 08/26/17 07:30 08/26/17 07:30 Problem List - Problems (1) Acute kidney injury Code(s): N17.9 - ACUTE KIDNEY FAILURE, UNSPECIFIED (2) Diabetes mellitus Code(s): E11.9 - TYPE 2 DIABETES MELLITUS WITHOUT COMPLICATIONS Qualifiers: Diabetes mellitus type: type 2 Chronic kidney disease stage: unspecified stage (3) Vomiting and diarrhea Code(s): R11.10 - VOMITING, UNSPECIFIED; R19.7 - DIARRHEA, UNSPECIFIED Assessment/Plan self ambulatory tolerating PO intake cleared by GI and Nephrology to go home and f/u outpatient
[2017-08-26] MEDS: SODIUM CHLORIDE 1,000 ML IV SCH (20:13)
== END 2017-08-26 16:52 | disposition home or self-care (01) | DRG 460 ==
LOC: JER 13:26 → JERBED 19:41 → J5S 21:54
PROVIDERS: ADMIT Internal Medicine; ATTEND Family Medicine
DX: N17.9 Acute kidney failure, unspecified (principal); I12.9 Hypertensive chronic kidney disease with stage 1 through stage 4 chronic kidney disease, or unspecified chronic kidney disease; E11.22 Type 2 diabetes mellitus with diabetic chronic kidney disease; N18.9 Chronic kidney disease, unspecified; R11.10 Vomiting, unspecified; R19.7 Diarrhea, unspecified; Z94.0 Kidney transplant status; A08.4 Viral intestinal infection, unspecified
CPT/HCPCS: 36415; 80048; 80053; 81003; 83036; 83690; 85025; 85027; 87086; 93005; 93010; 99283-25; J7517

== ENCOUNTER 2017-09-07 17:16 | Emergency (ER) | payer OTHER ==
[2017-09-07 17:39] VITALS: PULSE 77; BMI 25.8
--- NOTE | 2017-09-07 17:40 | PDOC ---
Rapid Medical Evaluation Time Seen by Provider: 09/07/17 17:32 Medical Evaluation: Allergies Allergy/AdvReac Type Severity Reaction Status Date / Time shellfish derived Allergy Intermediate Swelling Verified 12/25/15 07:55 atorvastatin calcium Allergy Verified 12/25/15 07:55 [From Lipitor] ceftriaxone sodium Allergy Verified 08/24/17 13:32 [From Rocephin] ciprofloxacin [From Cipro] Allergy Verified 08/24/17 13:32 ciprofloxacin HCl Allergy Verified 08/24/17 13:32 [From Cipro] honey Allergy Verified 08/24/17 13:32 levofloxacin [From Levaquin] Allergy Verified 08/24/17 13:32 chas Allergy Verified 08/24/17 13:32 naproxen sodium [From Aleve] Allergy Verified 08/24/17 13:32 pineapple Allergy Verified 08/24/17 13:32 povidone-iodine Allergy Verified 08/24/17 13:32 [From Betadine] soap [From Betadine] Allergy Verified 08/24/17 13:32 strawberry Allergy Verified 12/25/15 07:57 vancomycin Allergy Verified 12/25/15 07:55 russafin Allergy Uncoded 12/25/15 07:56 09/07/17 17:32 The patient presents with a chief complaint of: L arm/R arm pain for two days. Increasing pain today. History of upper extremity occlusions. Sent by her PCP I have performed a brief in-person evaluation of this patient; Pertinent physical exam findings: TTP LUE, RUE, R ankle pain (ttp of the lateral malleoulus I have ordered the following: Venous Duplex, CBC, CMP, uric acid The patient will proceed to the ED for further evaluation.
--- NOTE | 2017-09-07 21:54 | PDOC ---
History of Present Illness - General Chief Complaint: Pain Stated Complaint: BLOOD CLOT Time Seen by Provider: 09/07/17 17:32 History Source: Patient Exam Limitations: No Limitations - History of Present Illness Initial Comments: 09/07/17 23:32 This is 52-year-old woman with past medical history of hypertension, diabetes, renal transplant 1998, HCV who presents to the emergency department today with pain in both of her upper extremities and in her right lower extremity. Patient states she felt fine after discharge and 2 days after her discharge August 26 and started to feel the pain which was sudden onset in all 3 locations. She reports pain in her entire arm from her left shoulder down to her fingers. Pain in her right arm is located to the olecranon fossa. Pain in her right leg is located in her popliteal and extends to the dorsum of the foot. She denies fevers, chills, chest pain, shortness of breath, dizziness. Past History - Past Medical History Allergies/Adverse Reactions: Allergies Allergy/AdvReac Type Severity Reaction Status Date / Time shellfish derived Allergy Intermediate Swelling Verified 09/07/17 17:40 atorvastatin calcium Allergy Verified 09/07/17 17:40 [From Lipitor] ceftriaxone [From Rocephin] Allergy Verified 09/07/17 17:40 ceftriaxone sodium Allergy Verified 09/07/17 17:40 [From Rocephin] ciprofloxacin [From Cipro] Allergy Verified 09/07/17 17:40 ciprofloxacin HCl Allergy Verified 09/07/17 17:40 [From Cipro] honey Allergy Verified 09/07/17 17:40 levofloxacin [From Levaquin] Allergy Verified 09/07/17 17:40 chas Allergy Verified 09/07/17 17:40 naproxen sodium [From Aleve] Allergy Verified 09/07/17 17:40 pineapple Allergy Verified 09/07/17 17:40 povidone-iodine Allergy Verified 09/07/17 17:40 [From Betadine] soap [From Betadine] Allergy Verified 09/07/17 17:40 strawberry Allergy Verified 09/07/17 17:40 vancomycin Allergy Verified 09/07/17 17:40 Home Medications: Ambulatory Orders Clonidine HCl [Catapres -] 0.3 mg PO HS 05/14/13 Furosemide [Lasix -] 40 mg PO DAILY 05/14/13 Labetalol HCl [Normodyne -] 300 mg PO TID 05/14/13 Mycophenolate Mofetil [Cellcept] 500 mg PO DAILY 05/14/13 Prednisone [Deltasone -] 5 mg PO DAILY 05/14/13 Tacrolimus [Prograf] 3 mg PO DAILY 05/14/13 Clonidine HCl 0.1 mg PO TID 12/25/15 Glipizide [Glipizide ER] 5 mg PO DAILY 12/25/15 Apixaban [Eliquis -] 10 mg PO BID #13 tablet 09/07/17 Asthma: Yes Cardiac Disorders: Yes (Murmur) COPD: No Dialysis: (In the past, had Kidney transp.Rt arm Fistula) Disorders: Yes HTN: Yes Kidney Stones: (KIDNEY TRANSPLANT, RT ARM AV FISTULA) Thyroid Disease: No - Suicide/Smoking/Psychosocial Hx Smoking Status: No Smoking History: Former smoker Have you smoked in the past 12 months: No Number of Cigarettes Smoked Daily: 0 If you are a former smoker, when did you quit?: 22 years ago Information on smoking cessation initiated: No Hx Alcohol Use: No Drug/Substance Use Hx: No Substance Use Type: None Hx Substance Use Treatment: No *Physical Exam - Vital Signs Last Vital Signs Temp Pulse Resp BP Pulse Ox 98.8 F 77 18 195/134 100 09/07/17 17:35 09/07/17 17:35 09/07/17 17:35 09/07/17 17:35 09/07/17 17:35 - Physical Exam General Appearance: Yes: Appropriately Dressed. No: Apparent Distress HEENT: positive: Normal ENT Inspection Neck: positive: Trachea midline, Supple Respiratory/Chest: positive: Lungs Clear, Normal Breath Sounds. negative: Respiratory Distress, Accessory Muscle Use Cardiovascular: positive: Regular Rhythm, Regular Rate, S1, S2. negative: Murmur Vascular Pulses: Dorsalis-Pedis (R): 2+, Doralis-Pedis (L): 2+ Gastrointestinal/Abdominal: positive: Normal Bowel Sounds, Soft. negative: Tender Musculoskeletal: positive: Normal Inspection. negative: CVA Tenderness Extremity: positive: Tender (LUE- from shoulder to fingertips. RUE- to olecranon fossa.), Swelling (right lower extremity). negative: Coldness, Cyanosis, Delayed Capillary Refill, Calf Tenderness, Erythema Integumentary: positive: Normal Color, Dry, Warm Neurologic: positive: director general II-XII NML intact, Fully Oriented, Alert, Normal Mood/ Affect, Normal Response, Motor Strength /5 Medical Decision Making - Medical Decision Making 09/07/17 23:33 A/P: This is 52-year-old woman with past medical history of hypertension, diabetes, renal transplant 1998, HCV who presents to the emergency department today with pain in both of her upper extremities and in her right lower extremity. Patient states she felt fine after discharge and 2 days after her discharge August 26 and started to feel the pain which was sudden onset in all 3 locations. She reports pain in her entire arm from her left shoulder down to her fingers. Pain in her right arm is located to the olecranon fossa. Pain in her right leg is located in her popliteal and extends to the dorsum of the foot. She denies fevers, chills, chest pain, shortness of breath, dizziness. Right lower extremity is swollen and diffusely tender. There is no erythema noted. Right upper extremity without swelling or erythema appreciated. A-V fistula in the upper arm which has no bruit or thrill. Left upper extremity not swollen diffusely tender from shoulder to fingertips. Lungs clear to auscultation bilaterally. Regular rate and rhythm. S1 and S2 are present. No murmur, rub or gallop appreciated. Abdomen soft nontender nondistended. Differential diagnosis includes DVT, musculoskeletal pain Imaging performed a rapid medical evaluation reveals occlusion of the left cephalic vein. There is no DVT noted in the right upper extremity or in the right lower extremity. Patient is currently refusing IV or blood draws. Case discussed with attending physician who is in agreement with initiation of NOAC and follow-up with her primary doctor and referral for vascular surgeon. *DC/Admit/Observation/Transfer Diagnosis at time of Disposition: DVT (deep venous thrombosis) Qualifiers: DVT location: upper extremity Affected thrombotic vein of extremity: other upper extremity vein Chronicity: acute Laterality: left Qualified Code(s): I82.622 - Acute embolism and thrombosis of deep veins of left upper extremity Gout of ankle Qualifiers: Gout etiology: unspecified cause Chronicity: unspecified Laterality: right Qualified Code(s): M10.9 - Gout, unspecified - Discharge Dispostion Disposition: HOME Condition at time of disposition: Stable Admit: No - Prescriptions Prescriptions: Apixaban [Eliquis -] 10 mg PO BID #13 tablet - Referrals Referrals: Vito Henry MD [Primary Care Provider] - Hema Castillo MD [Staff Physician] - - Patient Instructions Additional Instructions: Take Eliquis 10 mg twice a day for the next week. After the first week you need to change the dosage. Follow-up with her regular doctor for repeat prescription at the different dosage. Make an appointment with Dr. Henry within the next 4 days. You have been given a referral for a vascular surgeon. Make an appointment with a vascular surgeon or go to the vascular surgeon that your primary doctor works with. Return to emergency department for shortness of breath, chest pain, dizziness, any other concerns. Thank you very much for choosing us to provide your emergent healthcare needs. - Post Discharge Activity Forms/Work/School Notes: Back to Work
[2017-09-07] MEDS ORDERED: APIXABAN 5 MG TABLET PO ONE (22:20)
[2017-09-08 01:02] VITALS: BP 147/92; TEMP 98.5
== END 2017-09-08 01:05 | disposition home or self-care (01) ==
LOC: JER 17:16
DX: I82.622 Acute embolism and thrombosis of deep veins of left upper extremity (principal); M10.9 Gout, unspecified; I10 Essential (primary) hypertension; E11.9 Type 2 diabetes mellitus without complications; Z79.84 Long term (current) use of oral hypoglycemic drugs; B18.2 Chronic viral hepatitis C; Z94.0 Kidney transplant status; Z95.828 Presence of other vascular implants and grafts
CPT/HCPCS: 93970-TC; 93971-TC; 99283-25

== ENCOUNTER 2019-01-31 19:11 | Emergency (ER) | payer OTHER | END 2019-01-31 23:44 | disposition home or self-care (01) | LOC: JER 19:11 ==